=== PATIENT | female | born 1970 ===

== ENCOUNTER 2017-09-07 15:23 | Emergency (ER) | payer MEDICAID, OTHER ==
[2017-09-07 15:24] VITALS: BMI 34.2
--- NOTE | 2017-09-07 16:16 | C.PDOC ---
Time Seen by Provider: 09/07/17 15:41 Chief Complaint (Nursing): Substance Abuse Past Medical History Vital Signs: Last Vital Signs Temp 97.8 F 09/07/17 15:34 Pulse 61 09/07/17 15:34 Resp 20 09/07/17 15:34 BP 145/82 09/07/17 15:34 Pulse Ox 100 09/07/17 15:34 - Medical History PMH: Asthma, HTN Denies: Chronic Kidney Disease - Social History Hx Alcohol Use: Yes Hx Substance Use: No - Immunization History Hx Tetanus Toxoid Vaccination: Yes Hx Influenza Vaccination: Yes Hx Pneumococcal Vaccination: Yes ED Course And Treatment O2 Sat by Pulse Oximetry: 100 Disposition Counseled Patient/Family Regarding: Diagnosis, Rx Given - Disposition Referrals: [facility] at [facility] [Outside] Disposition: HOME/ ROUTINE Disposition Time: 16:16 Condition: STABLE Additional Instructions: follow up with your doctor in 2 days call to make an appointment continue augmentin as prescribed return to ER if symptoms worsens or progress Instructions: Animal Bites (DC) Forms: [facility] ([place]in), General Discharge Instructions - Clinical Impression Clinical Impression: Cat bite, Mood disorder
--- NOTE | 2017-09-07 16:17 | C.PDOC ---
History Of Present Illness Patient is a 47 y/o female who presents to the ED by referral of police s/p threatening to take a bottle of xanax. Patient reports to have went to the police in attempt to evacuate an aggressive cat from her home; not satisfied from the help of the police, patient made the threat and was told to be seen in ED. Patient subsequently reached out to animal control who was unable to assist patient at the time. Patient notes feeling anxious and admits she only made the threat because she wasn't receiving any help; denies any SI/HI. Patient adds she was seen at [facility] and prescribed augmentin for cat bites; cat is strictly an indoor cat and has no outside exposure. Crisis notified. Time Seen by Provider: 09/07/17 15:41 Chief Complaint (Nursing): Substance Abuse History Per: Patient History/Exam Limitations: no limitations Onset/Duration Of Symptoms: Days Current Symptoms Are (Timing): Still Present Modifying Factor(s): None Associated Symptoms: Anxiety Recent travel outside of the [place]: No Past Medical History Reviewed: Historical Data, Nursing Documentation, Vital Signs Vital Signs: Last Vital Signs Temp 98.2 F 09/07/17 16:21 Pulse 68 09/07/17 16:21 Resp 16 09/07/17 16:21 BP 144/70 09/07/17 16:21 Pulse Ox 100 09/07/17 17:07 - Medical History PMH: Asthma, HTN Denies: Chronic Kidney Disease Surgical History: No Surg Hx Family History: States: No Known Family Hx - Social History Hx Tobacco Use: No Hx Alcohol Use: Yes Hx Substance Use: No - Immunization History Hx Tetanus Toxoid Vaccination: Yes Hx Influenza Vaccination: Yes Hx Pneumococcal Vaccination: Yes Review Of Systems Skin: Positive for: Other (cat bite/scratch) Psych: Positive for: Anxiety Physical Exam - Physical Exam Appears: Well, Non-toxic, No Acute Distress Skin: Normal Color, Warm, Dry, Other (abrasians and excoriations to bilateral ankles and dorsum of bilateral hands; no gross cellulated component) Head: Atraumatic, Normacephalic Oral Mucosa: Moist Cardiovascular: Rhythm Regular, No Murmur Respiratory: Normal Breath Sounds, No Rales, No Rhonchi, No Wheezing Extremity: Normal ROM Pulses: Left Brachial: Normal, Right Brachial: Normal, Left Radial: Normal, Right Radial: Normal Neurological/Psych: Oriented x3, Normal Speech, Normal Cognition ED Course And Treatment O2 Sat by Pulse Oximetry: 100 Progress Note: Crisis evaluated patient and agrees to discharge patient home. Medical Decision Making Medical Decision Making: Assessment: wound check and mood disorder. Disposition - Disposition Referrals: [facility] [Outside] Disposition: HOME/ ROUTINE Disposition Time: 16:16 Condition: STABLE Additional Instructions: follow up with your doctor in 2 days call to make an appointment continue augmentin as prescribed return to ER if symptoms worsens or progress Instructions: Animal Bites (DC) Forms: General Discharge Instructions, [facility] (Citizen [place]) - Clinical Impression Clinical Impression: Cat bite, Mood disorder - Scribe Statement The provider has reviewed the documentation as recorded by the Scribe Kaylin Jones All medical record entries made by the Scribe were at my direction and personally dictated by me. I have reviewed the chart and agree that the record accurately reflects my personal performance of the history, physical exam, medical decision making, and the department course for this patient. I have also personally directed, reviewed, and agree with the discharge instructions and disposition.
[2017-09-07 16:23] VITALS: BP 144/70; PULSE 68; RESP 16; TEMP 98.2
[2017-09-07 16:36] VITALS: O2SAT 100
== END 2017-09-07 16:21 | disposition home or self-care (01) ==
LOC: C.ER 15:23
DX: F39 Unspecified mood [affective] disorder (principal); W55.01XD Bitten by cat, subsequent encounter

== ENCOUNTER 2018-10-14 12:24 | Emergency (ER) | payer MEDICAID ==
[2018-10-14 12:24] VITALS: BMI 34.2
--- NOTE | 2018-10-14 14:26 | C.PDOC ---
History Of Present Illness 48 year old female presents to ED with complaint of sore throat since last night. Patient also complains of myalgias and subjective fever. Patient has taken no medication for pain prior to arrival. Patient denies cough, runny nose, and nasal congestion. SORE THROAT SINCE LAST NIGHT. MYALGIA, SUBJ FEVER. 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 ABX, NSAIDS, DEX Time Seen by Provider: 10/14/18 13:46 Chief Complaint (Nursing): Flu-like Symptoms History Per: Patient History/Exam Limitations: no limitations Onset/Duration Of Symptoms: Days (2) Current Symptoms Are (Timing): Still Present Location Of Pain: Throat, Diffuse Myalgias Associated Symptoms: Fever, Sore Throat, Myalgias. denies: Cough, Sputum, Sinus Drainage, Nasal Congestion Ear Symptoms: Bilateral: None Past Medical History Reviewed: Historical Data, Nursing Documentation, Vital Signs Vital Signs: Last Vital Signs Temp 101.1 F H 10/14/18 12:36 Pulse 90 10/14/18 12:36 Resp 18 10/14/18 12:36 BP 175/101 H 10/14/18 12:36 Pulse Ox 98 10/14/18 12:36 Primary Care Provider: Non [facility] Provider, - Medical History PMH: Asthma, HTN Denies: Chronic Kidney Disease Surgical History: No Surg Hx Family History: States: Unknown Family Hx - Social History Hx Tobacco Use: No Hx Alcohol Use: No Hx Substance Use: No - Immunization History Hx Tetanus Toxoid Vaccination: Yes Hx Influenza Vaccination: Yes Hx Pneumococcal Vaccination: Yes Review Of Systems Except As Marked, All Systems Reviewed And Found Negative. Constitutional: Positive for: Fever, Malaise ENT: Positive for: Throat Pain Physical Exam - Physical Exam Appears: Well, Non-toxic, No Acute Distress Skin: Normal Color, Warm, Dry Head: Atraumatic, Normacephalic Eye(s): bilateral: Normal Inspection, PERRL, EOMI Ear(s): Bilateral: Normal Nose: Normal, No Discharge Oral Mucosa: Moist Throat: Exudate, Other (+pharyngitis, no abscess, voice within normal limits, no stridor or muffled voice ) Neck: Normal ROM, Supple Chest: Symmetrical, No Deformity Cardiovascular: Rhythm Regular, No Murmur Respiratory: No Accessory Muscle Use, No Rales, No Rhonchi, No Wheezing Gastrointestinal/Abdominal: Soft, No Tenderness Extremity: Capillary Refill (<2 seconds) Extremity: Bilateral: Atraumatic, Normal Color And Temperature, Normal ROM Pulses: Left Radial: Normal, Right Radial: Normal Neurological/Psych: Oriented x3, Normal Speech, Normal Cognition ED Course And Treatment O2 Sat by Pulse Oximetry: 98 (in RA) Pulse Ox Interpretation: Normal Progress Note: Patient given Amoxicillin PO, Decadron IM, Toradol IM, and Tylenol PO. Medical Decision Making Medical Decision Making: MDM: Pharyngitis. Patient given antibiotics, NSAIDs, and decadron. Disposition Counseled Patient/Family Regarding: Diagnosis, Need For Followup, Rx Given - Disposition Referrals: YOUR,PMD [Other] Disposition: HOME/ ROUTINE Disposition Time: 14:06 Condition: IMPROVED Prescriptions: Acetaminophen [Tylenol Extra Strength] 2 tab PO Q6 #30 tablet Amoxicillin [Amoxil 500 mg Cap] 500 mg PO BID #14 cap Ibuprofen [Motrin] 600 mg PO Q6 #30 tab Instructions: Sore Throat, Adult (DC) Forms: [facility] ([place]), Work Excuse - Clinical Impression Clinical Impression: Pharyngitis - Scribe Statement The provider has reviewed the documentation as recorded by the Scribe (Salome Snowden) All medical record entries made by the Scribe were at my direction and personally dictated by me. I have reviewed the chart and agree that the record accurately reflects my personal performance of the history, physical exam, medical decision making, and the department course for this patient. I have also personally directed, reviewed, and agree with the discharge instructions and disposition.
[2018-10-14 15:10] VITALS: BP 122/77; PULSE 78; RESP 20; TEMP 100
[2018-10-14 15:30] VITALS: O2SAT 98
== END 2018-10-14 15:15 | disposition home or self-care (01) ==
LOC: C.ER 12:24
DX: J02.9 Acute pharyngitis, unspecified (principal)
CPT/HCPCS: 96372; 99284; J1100; J1885